=== PATIENT | male | born 1960 | race Caucasian/White ===

== ENCOUNTER 2018-05-20 08:42 | Emergency (ER) | payer MEDICAID ==
[~2018-05-20] VITALS: Ht 167.6 cm; Wt 71.0 kg
[2018-05-20 08:44] VITALS: BP 126/78; PULSE 66; RESP 18; Ht 167.6 cm; Wt 71.0 kg
[2018-05-20] MEDS ORDERED: NAPR-985 PO (10:22)
--- NOTE | 2018-05-20 11:34 | ERD ---
ER Documentation Chief Complaint Chief Complaint pt is bib self with c/o left leg pain since running this am HPI 58-year-old male presenting with left leg pain. This morning patient was ru nning around with his grandson and he felt a pop in his calf. He has been having some pain ever since and it hurts to walk. Denies any numbness or tingling. Is able to flex and extend at the foot without weakness. Has not taken medications for symptoms. Denies medical problems. NKDA. Surgical history is cholecystectomy. Social history denies ROS All systems reviewed and are negative except as per history of present illness. Medications Home Meds Active Scripts Naproxen* (Naprosyn*) 500 Mg Tablet, 500 MG PO BID PRN for PAIN AND/OR INFLAMMATION, #30 TAB Prov:PAT LAGUNA PA-C 05/20/18 Reported Medications [None] No Conflict Check 08/26/09 Allergies Allergies: Coded Allergies: No Known Allergy (Verified Allergy, Mild, 08/26/09) PMhx/Soc History of Surgery: No Hx Neurological Disorder: No Hx Respiratory Disorders: No Hx Cardiac Disorders: No Hx Miscellaneous Medical Probl: No Hx Alcohol Use: No Hx Tobacco Use: Yes (10 CIGARRETTES A DAY) Smoking Status: Never smoker FmHx Family History: No diabetes, No coronary disease, No other Physical Exam Vitals Vital Signs Date Temp Pulse Resp B/P (MAP) Pulse Ox O2 O2 Flow FiO2 Time Delivery Rate 05/20/18 98.3 66 18 126/78 98 08:44 (94) Physical Exam GENERAL: The patient is well-appearing, well-nourished, in no acute distress CHEST: Clear to auscultation bilaterally. There are no rales, wheezes or rhonchi. HEART: Regular rate and rhythm. No murmurs, clicks, rubs or gallops. No S3 or S4. EXTREMITIES: Tender to palpation to left calf. Strength 5 out of 5 with flexion extension of the foot. Muscles intact. Compartments soft. Mild swelling noted to the calf. NEUROLOGIC: Alert and oriented. Cranial nerves II through XII intact. Motor strength in all 4 extremities with 5 out of 5 strength. Sensation grossly intact. Normal speech and gait. Babinski negative. DTR 2+ throughout. SKIN: There is no apparent rash or petechiae. The skin is warm and dry. Procedures/MDM DIAGNOSTIC IMAGING REPORT Patient: URSULA MCKENZIE : 1960 Age: 58 Sex: M [id number] DOS: 05/20/18 0917 Ordering MD: JUAN LAGUNA PA-C Location: E Room/Bed: PROCEDURE: US Lower extremity Venous. CLINICAL INDICATION: Left leg swelling. TECHNIQUE: Multiple sonographic images of the left lower extremity deep venous system was obtained utilizing malloy scale, color-flow, compressive sonography and doppler imaging with augmentation. COMPARISON: None. FINDINGS: There is normal compressibility, phasicity and Doppler flow within the left c ommon femoral, femoral and popliteal veins. Visualized portions of the calf veins are patent. IMPRESSION: No sonographic evidence for deep venous thrombosis in the left leg. MDM: 58-year-old male presenting with pain to left leg. I have low suspicion for DVT. Patient likely has muscle strain secondary to. I will suspicion for acute fracture dislocation. Patient is discharged stricter precautions and told to follow-up with primary care within 1-2 days for patient is told if symptoms change or worsen to immediately return to the ER. All questions answered at discharge Departure Diagnosis: Primary Impression: Pain of left leg Condition: Stable Patient Instructions: Muscle Strain, Extremity Referrals: COMMUNITY CLINICS YOU HAVE RECEIVED A MEDICAL SCREENING EXAM AND THE RESULTS INDICATE THAT YOU DO NOT HAVE A CONDITION THAT REQUIRES URGENT TREATMENT IN THE EMERGENCY DEPARTMENT. FURTHER EVALUATION AND TREATMENT OF YOUR CONDITION CAN WAIT UNTIL YOU ARE SEEN IN YOUR DOCTORS OFFICE WITHIN THE NEXT 1-2 DAYS. IT IS YOUR RESPONSIBILITY TO MAKE AN APPOINTMENT FOR FOLOW-UP CARE. IF YOU HAVE A PRIMARY DOCTOR --you should call your primary doctor and schedule an appointment IF YOU DO NOT HAVE A PRIMARY DOCTOR YOU CAN CALL OUR PHYSICIAN REFERRAL HOTLINE AT IF YOU CAN NOT AFFORD TO SEE A PHYSICIAN YOU CAN CHOSE FROM THE FOLLOWING [facility] CLINICS [facility] [address] [facility] [address] [facility] [address] [facility] [address] [facility]. [facility] [address] [facility]. [facility] [address] Additional Instructions: FOLLOW UP WITH YOUR PRIMARY CARE PHYSICIAN TOMORROW.Return to this facility if you are not improving as expected. PAT LAGUNA PA-C May 20, 2018 11:34
== END 2018-05-20 10:34 | disposition home or self-care (01) ==
LOC: FTE 08:42
DX: M79.605 Pain in left leg (principal); F17.210 Nicotine dependence, cigarettes, uncomplicated
CPT/HCPCS: 93971; Z7502

== ENCOUNTER 2018-05-25 11:03 | Emergency (ER) | payer MEDICAID ==
[~2018-05-25] VITALS: Ht 175.3 cm; Wt 73.6 kg
[~2018-05-25 11:03] MED LIST: NAPR-985 PO
[2018-05-25 11:08] VITALS: BP 127/73; PULSE 74; RESP 18; Ht 175.3 cm; Wt 73.6 kg
[2018-05-25] MEDS ORDERED: IBUP-1542 PO (13:22)
--- NOTE | 2018-05-25 13:41 | ERD ---
ER Documentation Chief Complaint Chief Complaint lt calf pain s/p fall last tuesday HPI 58-year-old male presenting with pain to left calf. Patient fell while playing with his grandson 5 days ago. He was seen here the day that occurred and imaging and ultrasound were within normal limits. Patient has had increased swelling noted at the leg. He denies any numbness or tingling. Denies other medical problems. NKDA. Surgical history denies. Social history denies ROS All systems reviewed and are negative except as per history of present illness. Medications Home Meds Active Scripts Ibuprofen* (Motrin*) 600 Mg Tab, 600 MG PO Q6, #30 TAB Prov:PAT LAGUNA PA-C 05/25/18 Naproxen* (Naprosyn*) 500 Mg Tablet, 500 MG PO BID PRN for PAIN AND/OR INFLAMMATION, #30 TAB Prov:PAT LAGUNA PA-C 05/20/18 Reported Medications [None] No Conflict Check 08/26/09 Allergies Allergies: Coded Allergies: No Known Allergy (Verified Allergy, Mild, 08/26/09) PMhx/Soc History of Surgery: No Hx Neurological Disorder: No Hx Respiratory Disorders: No Hx Cardiac Disorders: Yes (CA, HTN) Hx Psychiatric Problems: No Hx Miscellaneous Medical Probl: No Hx Alcohol Use: No Hx Substance Use: No Hx Tobacco Use: Yes (10 CIGARRETTES A DAY) Smoking Status: Former smoker FmHx Family History: No diabetes, No coronary disease, No other Physical Exam Vitals Vital Signs Date Temp Pulse Resp B/P (MAP) Pulse Ox O2 O2 Flow FiO2 Time Delivery Rate 05/25/18 97.5 74 18 127/73 100 11:08 (91) Physical Exam GENERAL: The patient is well-appearing, well-nourished, in no acute distress CHEST: Clear to auscultation bilaterally. There are no rales, wheezes or rhonchi. HEART: Regular rate and rhythm. No murmurs, clicks, rubs or gallops. No S3 or S4. EXTREMITIES: Swelling noted to the left calf with normal pulses distally. Compartments soft. Tender to palpation over the superior gastrocnemius. NEUROLOGIC: Alert and oriented. Cranial nerves II through XII intact. Motor strength in all 4 extremities with 5 out of 5 strength. Sensation grossly intact. Normal speech and gait. SKIN: There is no apparent rash or petechiae. The skin is warm and dry. Procedures/MDM DIAGNOSTIC IMAGING REPORT Patient: URSULA MCKENZIE : 1960 Age: 58 Sex: M MR #: [id number] DOS: 05/25/18 1153 Ordering MD: JUAN LAGUNA PA-C Location: FTE Room/Bed: PROCEDURE: US left Lower extremity Venous. CLINICAL INDICATION: Left calf pain TECHNIQUE: Multiple sonographic images of the bilateral lower extremity deep venous system was obtained utilizing grayscale, color-flow, compressive sonography and doppler imaging with augmentation. Delete the COMPARISON: None. FINDINGS: There is normal compressibility and flow within the left common femoral, deep femoral, superficial femoral, posterior tibial, peroneal and popliteal veins. Note at this site of pain involving the patient's left calf is a 1.79 x 0.79 x 1.55 cm localized fluid collection. May represent a hematoma. Recommend clinical correlation. IMPRESSION: 1. No sonographic evidence for deep venous thrombosis of the left lower extremity. 2. At the site of pain involving the left calf is a localized 1.79 x 0.79 x 1.55 cm fluid collection that may represent a hematoma. Recommend clinical correlation. DIAGNOSTIC IMAGING REPORT Patient: URSULA MCKENZIE : 1960 Age: 58 Sex: M MR #: [id number] DOS: 05/25/18 1153 Ordering MD: JUAN LAGUNA PA-C Location: FTE Room/Bed: PROCEDURE: Left tibia and fibula x-ray CLINICAL INDICATION: leg pain with swelling TECHNIQUE: AP, lateral views of the tibia and fibula were obtained. COMPARISON: None FINDINGS: There is normal mineralization. No acute fracture or dislocation is seen. There are no significant degenerative changes. Moderate distal predominant soft tissue swelling. IMPRESSION: Soft tissue swelling without evidence of acute osseous abnormality.. ER course: David wrap and crutches given ED. MDM: 58-year-old male presenting with pain to left calf. I believe patient's pain is likely due to hematoma and swelling. Patient is told to ice and elevate his leg as well as wearing compression units. I have low suspicion for DVT or compartment syndrome. This case was discussed with Dr. Whaley prior to discharge. Patient is told if symptoms change or worsen to return immediately to the ER. All questions answered at discharge Departure Diagnosis: Primary Impression: Leg swelling Condition: Stable Patient Instructions: Muscle Strain, Extremity Referrals: COMMUNITY CLINICS YOU HAVE RECEIVED A MEDICAL SCREENING EXAM AND THE RESULTS INDICATE THAT YOU DO NOT HAVE A CONDITION THAT REQUIRES URGENT TREATMENT IN THE EMERGENCY DEPARTMENT. FURTHER EVALUATION AND TREATMENT OF YOUR CONDITION CAN WAIT UNTIL YOU ARE SEEN IN YOUR DOCTORS OFFICE WITHIN THE NEXT 1-2 DAYS. IT IS YOUR RESPONSIBILITY TO MAKE AN APPOINTMENT FOR FOLOW-UP CARE. IF YOU HAVE A PRIMARY DOCTOR --you should call your primary doctor and schedule an appointment IF YOU DO NOT HAVE A PRIMARY DOCTOR YOU CAN CALL OUR PHYSICIAN REFERRAL HOTLINE AT IF YOU CAN NOT AFFORD TO SEE A PHYSICIAN YOU CAN CHOSE FROM THE FOLLOWING [facility] CLINICS [facility] [address] [facility]. [facility] [address] [facility] [facility] [address] [facility] [facility] [address] [facility]. [facility] [address] [facility]. [facility]. [address] Additional Instructions: FOLLOW UP WITH YOUR PRIMARY CARE PHYSICIAN TOMORROW.Return to this facility if you are not improving as expected. PAT LAGUNA PA-C May 25, 2018 13:41
== END 2018-05-25 13:39 | disposition home or self-care (01) ==
LOC: FTE 11:03
DX: R22.42 Localized swelling, mass and lump, left lower limb (principal); I10 Essential (primary) hypertension; I25.2 Old myocardial infarction; Z87.891 Personal history of nicotine dependence
CPT/HCPCS: 73590; 93971; Z7502